=== PATIENT | female | born 1935 | race Caucasian/White ===

== ENCOUNTER 2016-02-23 10:49 | Emergency (ER) | payer OTHER, BC ==
[2016-02-23 10:54] VITALS: O2SAT 94
--- NOTE | 2016-02-23 11:40 | EDPHY ---
H & P Stated Complaint: sore throat, runny nose, cough 4x days Time Seen by Provider: 02/23/16 11:36 HPI/ROS: CHIEF COMPLAINT: Cough, shortness of breath, fever. HISTORY OF PRESENT ILLNESS: The patient is a 80-year-old female with a history of mild asthma who presents with productive cough and shortness of breath, onset 3 days ago. She has had a fever, myalgias, and chills associated with these symptoms. She denies chest pain, abdominal pain, nausea, vomiting. She has gotten her flu shot this year. Patient reports that whenever she gets an upper respiratory infection, she develops a chest cold bronchitis. REVIEW OF SYSTEMS: Aside from elements discussed in the HPI, a comprehensive 10-point review of systems was reviewed and is negative. PAST MEDICAL HISTORY: Hypertension, ear infections, borderline asthma. History of left lower lobe lung collapse. SOCIAL HISTORY: Here alone. VITAL SIGNS: Reviewed by me GENERAL: Well-developed, well-nourished, resting comfortably in no respiratory distress. HEENT: Eyes: No icterus, no injection. Mouth: moist mucous membranes. No erythema or lesions. Neck: supple with no adenopathy. LUNGS: Bilateral crackles, no wheezes, rhonchi or rales. CARDIAC: Regular rate and rhythm, no rubs, murmurs or gallops. ABDOMEN: Soft, nontender, nondistended, bowel sounds normal. BACK: No CVA tenderness. EXTREMITIES: No trauma. No edema. Range of motion is normal throughout. NEURO: Alert and oriented, grossly nonfocal. SKIN: Warm and dry, no rash. PSYCHIATRIC: Normal mentation, no agitation. Portions of this note were transcribed by a medical artist. I personally performed a history, physical exam, medical decision making, and confirmed accuracy of information the transcribed note. Source: Patient Exam Limitations: No limitations - Personal History Current Tetanus Diphtheria and Acellular Pertussis (TDAP): No - Medical/Surgical History Hx Asthma: Yes Hx Chronic Respiratory Disease: No Hx Diabetes: No Hx Cardiac Disease: No Hx Renal Disease: No Hx Cirrhosis: No Hx Alcoholism: No Hx HIV/AIDS: No Hx Splenectomy or Spleen Trauma: No Other PMH: HTN, ear infections - Social History Smoking Status: Never smoked Constitutional: Initial Vital Signs Temperature (C) 37 C 02/23/16 10:50 Heart Rate 63 02/23/16 10:50 Respiratory Rate 16 02/23/16 10:50 Blood Pressure 163/57 H 02/23/16 10:50 O2 Sat (%) 94 02/23/16 10:50 O2 Delivery Mode Room Air Allergies/Adverse Reactions: venom-honey bee [bee venom (honey bee)] Allergy (Severe, Verified 11/21/14 12:07 ) Anaphylaxis Penicillins Allergy (Verified 04/15/13 16:17) Home Medications: Medication Instructions Recorded Calcium Carbonate [Tums 500MG PO BID 07/30/15 (OTC)] ENALAPRIL MALEATE 07/30/15 EPIPEN 07/30/15 HCTZ (RX) 12.5 PO DAILY 07/30/15 LORAZEPAM 1 mg PO PRN 07/30/15 Nasacort 55 mcg NASAL PRN 07/30/15 AZITHROMYCIN [Z-PACK] 250 - 500 mg PO DAILY #6 tab 02/23/16 predniSONE 40 mg PO DAILY #6 tab 02/23/16 Medical Decision Making - Diagnostics Imaging: X-ray of the chest was obtained. I viewed the images myself on the PACS system. My interpretation of the images is: no active cardiopulmonary disease. The radiologist interpretation is pending at this time. I discussed the x- ray findings with the patient. ED Course/Re-evaluation: Chest x-ray ordered. 3ml IH Albuterol ordered. Patient's initial O2 sat was 89% when asleep. She received an albuterol nebulizer treatment which improved her air exchange, as well as improved her oxygenation. Chest x-ray demonstrates bronchitis only with no focal infiltrate. Patient was placed on azithromycin as well as advised to begin using her meter dose inhaler more regularly and to take prednisone. Differential Diagnosis: Differential diagnosis for the patient's shortness of breath was considered including but not limited to pulmonary infectious processes, COPD exacerbation, pulmonary emboli, pulmonary edema, congestive heart failure, and cardiac causes. - Data Points Medications Given: Discontinued Medications Albuterol (Proventil Neb) 3 ml IH EDNOW ONE Stop: 02/23/16 12:08 Last Admin: 02/23/16 12:25 Dose: 3 ml Departure - Departure Disposition: Home, Routine, Self-Care Clinical Impression: Bronchitis, Reactive airway disease Condition: Good Instructions: Acute Bronchitis (ED) Additional Instructions: Take the antibiotic as prescribed. Use your inhaler as directed. Please use the inhaler at least 4 times a day for the next several days. Take Prednisone as prescribed. Follow up with your primary care provider in the next 2-3 days if symptoms are not improving. Return to the emergency department if you experience serious worsening of condition. Referrals: Janay Hadley MD [Primary Care Provider] - As per Instructions Prescriptions: AZITHROMYCIN [Z-PACK] 250 - 500 mg PO DAILY #6 tab predniSONE 40 mg PO DAILY #6 tab Report Scribed for: Kalli Weinberg Report Scribed by: Александр Dunlap Date of Report: 02/23/16 Time of Report: 11:40
[2016-02-23] MEDS ORDERED: ALBUTEROL 3 ML DEYVIAL IH ONE (12:07)
--- NOTE | 2016-02-23 12:33 | DX ---
Chest, PA Upright and Lateral Views - February 23, 2016, at 11:03 a.m. Clinical History: 80-year-old female with a persistent cough and cold symptoms for one week. Comparison Studies: Chest, dated October 17, 2015 and June 21, 2015, and chest CT imaging dated August 22, 2014. Findings: The cardiac and mediastinal silhouette are normal in size. There is mural calcification of the aortic knob. There is chronic collapse of the medial left lower lobe, with no new focal alveolar consolidation. There is no pleural effusion, peripheral interstitial edema, or pneumothorax. There ar e senescent features of the spine. Impression: Relatively stable chest radiography, with chronic collapse of the left lower lobe.
[2016-02-23 13:32] VITALS: BP 128/78; PULSE 70; RESP 14; TEMP 97.9
== END 2016-02-23 13:30 | disposition home or self-care (01) ==
DX: J20.9 Acute bronchitis, unspecified (principal); J45.909 Unspecified asthma, uncomplicated; I10 Essential (primary) hypertension

== ENCOUNTER → 2017-02-24 | Outpatient (CLI) | payer OTHER, BC | LOC: BHFA 10:45 | PROVIDERS: ATTEND Internal Medicine Cardiovascular Disease | DX: I25.10 Atherosclerotic heart disease of native coronary artery without angina pectoris (principal) ==

== ENCOUNTER → 2017-03-04 | Outpatient (CLI) | payer OTHER, BC | LOC: BHFA 08:30 | PROVIDERS: ATTEND Internal Medicine Cardiovascular Disease | DX: I25.10 Atherosclerotic heart disease of native coronary artery without angina pectoris (principal); R06.02 Shortness of breath | CPT/HCPCS: 78452; 93017; A9500; J2785 ==

== ENCOUNTER 2017-03-12 07:29 | Day surgery (SDC) | payer OTHER, BC ==
[2017-03-12] MEDS ORDERED: DIAZEPAM 5 MG TAB PO ONE (07:30)
[2017-03-12] MEDS ORDERED: NS 1,000 ML IV ONE (07:30)
[2017-03-12] MEDS ORDERED: FAMOTIDINE 20 MG TAB PO ONE (07:30)
[2017-03-12] MEDS ORDERED: ASPIRIN EC 325 MG TAB PO ONE ×2 (07:30→08:04)
[2017-03-12] MEDS ORDERED: diphenhydrAMINE 25 MG CAP PO ONE ×2 (07:30→08:04)
[2017-03-12] MEDS ORDERED: LIDOCAINE 1% 300 MG/30 ML SDV ONE (08:00)
[2017-03-12] MEDS ORDERED: fentaNYL 100 MCG/2 ML INJ ONE (08:00)
[2017-03-12] MEDS ORDERED: IOPAMIDOL (ISOVUE-370) 150 ML BTL IV ONE (08:00)
[2017-03-12] MEDS ORDERED: MIDAZOLAM 2 MG/2 ML VIAL ONE (08:00)
--- NOTE | 2017-03-12 08:03 | CPEKG ---
Heart Rate: 48 RR Interval: 1250 P-R Interval: 164 QRSD Interval: 68 QT Interval: 504 QTC Interval: 451 P [place]: 62 QRS [place]: -8 T Wave [place]: 57 EKG Severity - BORDERLINE ECG - EKG Impression: SINUS BRADYCARDIA EKG Impression: BORDERLINE T WAVE ABNORMALITIES Electronically Signed By: Rocky Dillon 14-Mar-2017 10:46:45
[2017-03-12] MEDS ORDERED: FAMOTIDINE 20 MG TAB ONE (08:04)
[2017-03-12] MEDS ORDERED: DIAZEPAM 5 MG TAB ONE (08:05)
[2017-03-12 08:29] LABS: PLATELET COUNT 213 10^3/uL (150-400)
[2017-03-12 08:39] LABS: INR 0.92 (0.83-1.16); PROTIME(PATIENT) 12.6 SEC (12.0-15.0)
--- NOTE | 2017-03-12 09:21 | PDHPUP ---
History & Physical Update H&P update statement: This history and physical update is based on an assessment of the patient which was completed after admission or registration (within 24 hours), but prior to the surgery/procedure. for cath w increased sob and very abnl nuc ett.
--- NOTE | 2017-03-12 09:21 | PDPROPOC ---
Sedation Plan of Care ASA Classification: ASA 1 Mallampati Score: Class 1 Mallampati Reference Image: Patient passed 3-3-2 rule?: Yes
[2017-03-12] MEDS ORDERED: HEPARIN 10,000 UNIT/10 ML MDV (1,000 UNIT/ML) ONE (09:33)
[2017-03-12] MEDS ORDERED: ATROPINE SULFATE 1 MG/10 ML SYR ONE (09:34)
[2017-03-12] MEDS ORDERED: NITROGLYCERIN 0.4 MG BTL SL PRN (13:20)
[2017-03-12] MEDS ORDERED: OXYCODONE/APAP 5/325 TAB PO PRN (13:20)
[2017-03-12] MEDS ORDERED: ATROPINE SULFATE 1 MG/10 ML SYR IVP PRN (13:20)
[2017-03-12] MEDS ORDERED: HYDROCODONE/APAP 5/325 TAB PO PRN (13:20)
[2017-03-12] MEDS ORDERED: ONDANSETRON 4 MG/2 ML VIAL IVP PRN (13:20)
--- NOTE | 2017-03-12 13:24 | PDGENHP ---
History and Physical History and Physical: she has a history of shortness of breath. her shortness of breath has been worse. 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 She has in the past not wanted full anticoagulation for the possibility of clot in the apex. She has a ischemic cardiomyopathy with an ejection fraction in the 40% range. She is being seen by her pulmonary doctors and they have been able to really help her shortness of breath and more concerned there is possibly a cardiovascular cause. We had a repeat stress test done which showed significant fixed and reperfusing defect. The remainder of her history is attached in the historical record which is 5- week-old approximately. A physical exam see her vital signs which are attached cardiovascular exam reveals S1-S2 soft systolic murmur left sternal border no diastolic murmur no S3-S4 no rubs pulmonary exam rhonchi no rales wheezing or dullness abdomen soft nontender without masses pulses are full and equal. On she is alert and cooperative. Assessment 1. Is coronary artery disease 2. Abnormal nuclear study 3. Increasing shortness of breath I think this shortness of breath may well be an anginal equivalent because having a very low activity levels and is something we have to pay attention to. Very large defect but it significant reperfusion as well. Old records have been reviewed and are attached. All of her questions have been answered
== END 2017-03-12 17:03 | disposition home or self-care (01) ==
LOC: FCATH 07:29
PROVIDERS: ATTEND Internal Medicine
PROC: B2151ZZ Fluoroscopy of Left Heart using Low Osmolar Contrast (ICD-10-PCS; principal; 2017-03-12)
PROC: B2111ZZ Fluoroscopy of Multiple Coronary Arteries using Low Osmolar Contrast (ICD-10-PCS; principal; 2017-03-12)
PROC: 4A023N7 Measurement of Cardiac Sampling and Pressure, Left Heart, Percutaneous Approach (ICD-10-PCS; principal; 2017-03-12)
DX: R06.02 Shortness of breath (principal); I25.119 Atherosclerotic heart disease of native coronary artery with unspecified angina pectoris; I25.2 Old myocardial infarction; I25.5 Ischemic cardiomyopathy; J44.9 Chronic obstructive pulmonary disease, unspecified; I10 Essential (primary) hypertension; M81.0 Age-related osteoporosis without current pathological fracture; N39.3 Stress incontinence (female) (male)
CPT/HCPCS: 93005; 93458; C1769; J0461; J1644; J2250; J3010; Q9967

== ENCOUNTER → 2017-11-17 | Outpatient (CLI) | payer OTHER, BC | LOC: BHFA 10:00 | PROVIDERS: ATTEND Internal Medicine Cardiovascular Disease | DX: I25.10 Atherosclerotic heart disease of native coronary artery without angina pectoris (principal); R06.02 Shortness of breath ==

== ENCOUNTER → 2017-12-07 | Outpatient (CLI) | payer OTHER, BC | LOC: BHFA 11:00 | PROVIDERS: ATTEND Internal Medicine | DX: R00.2 Palpitations (principal); I10 Essential (primary) hypertension ==